=== PATIENT | female | born 1975 | race Caucasian/White ===

== ENCOUNTER 2021-02-07 05:12 | Day surgery (SDC) | payer OTHER ==
[~2021-02-07] VITALS: Ht 160 cm; Wt 89.5 kg
[~2021-02-07 05:12] MED LIST: BAYER CHEWABLE81 MG PO; CO Q-10100 MG PO; GLUCOPHAGE XR750 MG PO; MAG-OX 400 MG400 MG PO; MULTI-DAY VITAM1 TAB PO; SEROQUEL100 MG PO; TYLENOL ARTHRI650 MG PO; [UNRECOGNIZED DRUG - OTHER] PO; [UNRECOGNIZED DRUG - OTHER] PO
[2021-02-07 05:40] LABS: BASOPHILS 0.6 % (0-2); EOSINOPHILS 3.3 % (0-7); HEMATOCRIT 42.9 % (36.0-48.0); HEMOGLOBIN 14.5 g/dL (12-16); IMMATURE GRANULOCYTES 0.2 % (0-5); LYMPHOCYTE ABS# 2.81 10x3/uL (1.18-3.74); LYMPHOCYTES 34.9 % (15-50); MCHC 33.8 g/dL (31.0-37.0); MCV 91.9 fL (80.0-100.0); MEAN PLATELET VOLUME 10.6 fL (7.4-10.4); MONOCYTES 8.3 % (2-11); NEUTROPHIL ABS# 4.24 10x3/uL (1.56-6.13); NEUTROPHILS 52.7 % (40-80); PLATELET COUNT 263 10x3/uL (130-400); RBC 4.67 10x6/uL (4.00-5.40); RDW 14.4 % (11.5-14.5); WBC 8.1 10x3/uL (4.8-10.8)
[2021-02-07 05:58] LABS: CALC OSMOLALITY 278 mosm/kg (275-300); CALCIUM 8.9 mg/dL (8.5-10.1); CARBON DIOXIDE 22.8 mmol/L (21.0-32.0); CHLORIDE - SERUM 105 mmol/L (98-107); CREATININE - SERUM 0.8 mg/dL (0.6-1.3); GLUCOSE 129 mg/dL (74-106); POTASSIUM - SERUM 4.1 mmol/L (3.5-5.1); SODIUM 138 mmol/L (136-145); UREA NITROGEN 16 mg/dL (7-18); eGFR NON AFRICAN AMERICAN 82 mL/min (90-120)
[2021-02-07 06:06] LABS: HCG SERUM NEGATIVE (NEGATIVE)
[2021-02-07] MEDS ORDERED: CYANOCOBAL1000 MCG/4 SC (06:10)
[2021-02-07 06:18] VITALS: BP 113/65; Ht 160 cm; Wt 89.5 kg
--- NOTE | 2021-02-07 09:20 | NUR ---
SCOPE PATCH ON BEHIND LEFT EAR ON ADMIT
--- NOTE | 2021-02-07 09:24 | NUR ---
OPA OUT ON ADMIT TO [facility]
--- NOTE | 2021-02-07 10:40 | NUR ---
DISCHARGE INSTRUCTIONS REVIEWED WITH PATIENT AND SPOUSE WITH BOTH VOICING UNDERSTANDING. PROVIDED INSTRUCTIONS ON PASTRANA CATHETER CARE AND HOW TO REMOVED PASTRANA. ALSO GAVE PT 10 CC SYRINGE TO USE FOR PASTRANA REMOVAL WHEN DR BALDERAS'S OFFICE SAYS SHE CAN REMOVE IT. PT STATES SHE IS READY TO BE DISCHARGED. INFORMED PT SHE NEEDS TO HAVE 1 MORE SET OF VS AROUND 1055 AND CAN THEN GET DRESSED FOR DISCHARGE. SHE STATED UNDERSTANDING.
--- NOTE | 2021-02-07 10:55 | NUR ---
IV DC'D BY ELYSIA ULLOA AND PT GETING DRESSED FOR DISCHARGE. PT DENIES PAIN. SPOUSE AT BEDSIDE.
--- NOTE | 2021-02-07 11:14 | NUR ---
DISCHARGED VIA W/C, ACCOMPANIED BY ELYSIA ULLOA, TO [facility] WITH SPOUSE DRIVING. PT WITHOUT C/O VOICED.
== END 2021-02-07 11:14 | disposition home or self-care (01) ==
LOC: D.OPS 05:12
PROVIDERS: Anesthesiology; ATTEND Obstetrics & Gynecology Maternal & Fetal Medicine
DX: N95.0 Postmenopausal bleeding (principal); E11.9 Type 2 diabetes mellitus without complications; Z79.84 Long term (current) use of oral hypoglycemic drugs